=== PATIENT | male | born 1955 | race Caucasian/White ===

== ENCOUNTER → 2023-10-04 07:43 | Outpatient (REF) | payer MEDICARE, OTHER, SELFPAY | LOC: RAD 07:43 | PROVIDERS: ATTENDING PHYSICIAN Physician Assistant; FAMILY PHYSICIAN Family Medicine | DX: I73.9 Peripheral vascular disease, unspecified (principal) | CPT/HCPCS: 93922; 93925 ==

== ENCOUNTER 2023-10-15 06:49 | Day surgery (SDC) | payer MEDICARE, OTHER, SELFPAY ==
[2023-10-15] VITALS (14 sets, daily range): BP systolic 20–174; BP diastolic 64–97; BMI 30.5
[2023-10-15 07:06] LABS: Hematocrit 35.2 % (39.0-52.0); Hemoglobin 11.8 g/dL (13.0-18.0); Mean Corp Hgb Conc. 33.5 g/dL (33.0-37.0); Mean Corpuscular Volume 86.5 fL (80.0-94.0); Mean Platelet Volume 10.5 fL (7.4-10.4); Platelet Count 241 10^3/uL (130-400); Red Blood Cell Count 4.07 10^6/uL (4.70-6.10); Red Cell Dist. Width 14.2 % (11.5-14.5)
[2023-10-15 07:19] LABS: INR 0.96; PT 12.7 Sec (11.4-14.6)
[2023-10-15 07:42] LABS: Glucose - Point of Care 241 mg/dl (70-99)
[2023-10-15] MEDS: NSS 500 IV (07:43)
[2023-10-15 07:53] LABS: Blood Urea Nitrogen 47 mg/dl (9-20); Calcium 9.4 mg/dl (8.4-10.2); Carbon Dioxide 25 mmol/L (22-30); Chloride 100 mmol/L (98-107); Estimated Creatinine Clearance 67 ml/min; Glucose 270 mg/dl (70-99); Potassium 5.2 mmol/L (3.5-5.1); Sodium 133 mmol/L (135-145); eGFR > 60.00
[2023-10-15] MEDS: NOVOLOG vial 1 UNITS SC ×2 (07:55→11:07)
--- NOTE | 2023-10-15 08:41 | W.SUR.PREOP ---
Pre-Operative Surgical Note
-
I have examined this patient prior to the performance of the scheduled procedure.
The patient's condition is unchanged from the time of the current History and
Physical and the patient is able to undergo the scheduled procedure.
--- NOTE | 2023-10-15 09:32 | W.PV.INTER ---
VPI Note
Pre Admission Note
Functional Status: Full
Ambulation: Ambulate Independently
Pre Op Medications
Pre Op ASA: Yes
Pre Op Statin: Yes
Pre Op NATALIIA Inhibitor/ARB: Yes
Pre Op P2y12 Antagonist: Clopidogrel
Pre Op Beta Blockers: Chronic > 30 Days
Pre Op Chronic Anticoagulant: None
Pre Op Cilostazol: No
Post Op Medications
Post Op ASA: Yes
Post Op Statin: Yes
Post Op NATALIIA Inhibitor/ARB: Yes
Post Op P2y12 Antagonist: Clopidogrel
Post Op Beta Blockers: Chronic > 30 Days
Post Op Chronic Anticoagulant: None
Post Op Cilostazol: No
--- NOTE | 2023-10-15 09:34 | W.SUR.POST ---
Surgical Immediate Post Op
Note
Pre Op Diagnosis: PAD
Post Op Diagnosis: PAD
Procedure Performed: RLE angiogram, IVL and END POLISHER of AT
Primary Surgeon: Britni
Anesthesia: local and sedation
Estimated Blood Loss: <2cc
Fluids: see anesthesia flow sheet
Drains/Shunts: none
Specimens/Cultures: none
Doppler/Duplex/Angio (Y/N): Y
Complications: none
Operative Findings: successful IVL/END POLISHER
[2023-10-15 11:06] LABS: Glucose - Point of Care 198 mg/dl (70-99)
[2023-10-15] MEDS: NSS 1000 IV (11:10)
[2023-10-15] MEDS: ROXICODONE 5 MG PO (12:00)
--- NOTE | 2023-10-15 12:21 | OR.RPT ---
Operative Report
Operative Report
Date of Operation: 10/15/2023
Pre Op Diagnosis: Critical limb threatening ischemia, right lower extremity manifested by ischemic rest pain of the hallux and heel and associated toe and heel ulcers
Post Op Diagnosis: Critical limb threatening ischemia, right lower extremity manifested by ischemic rest pain of the hallux and heel and associated toe and heel ulcers
Procedure:
1.) Intravascular lithotripsy of calcified right anterior tibial artery occlusion (2.5 mm x 40 mm shockwave S4 balloon)
2.) Balloon angioplasty of long-segment right anterior tibial artery occlusion (2 mm x 60 mm; 2 mm x 40 mm predilatation)
3.) Diagnostic aortobiiliac arteriogram
4.) Diagnostic right lower extremity arteriogram
5.) Ultrasound-guided percutaneous access to the left common femoral artery
Surgeon: Case Ryder III, MD
Anesthesia: Sedation with local
Fluoroscopy:
65.9 min
265 mGy
44.82 Gy.cm2
Complications: None
Estimated Blood Loss: Less than 10 cc
History and Indications for Procedure: 68-year-old male with severe peripheral arterial occlusive disease and critical limb threatening ischemia manifested by ischemic rest pain and nonhealing ulcers.
Procedure in Detail: Jose Miguel Babb was correctly identified and placed supine on the operating table. After adequate induction of anesthesia the bilateral groins were prepped and draped in the usual sterile fashion. A timeout was performed with the
nursing and anesthesia staff confirming the patient's identity as well as the nature and laterality of the procedure.
The left common femoral artery was identified under ultrasound guidance. The artery was patent. The superior and inferior aspects of the femoral head were identified with radiographic guidance and marked at the skin level. The proposed puncture site
was infiltrated with local anesthesia. We saved a copy of the ultrasound image to the medical record. Under ultrasound guidance we accessed the left common femoral artery with a micropuncture needle and upsized to a 5 Fr sheath over a Bentson wire.
The wire and a ShepherSputnik8 hook flush catheter were advanced into the distal abdominal aorta and a diagnostic aorto-biiliac arteriogram was performed:
AORTO-ILIAC ARTERIOGRAM:
Aorta: Patent with no stenosis identified
Right common iliac artery: Patent with no stenosis identified
Right external iliac artery: Patent with no stenosis identified
Left common iliac artery: Patent with no stenosis identified
Left external iliac artery: Patent with no stenosis identified
Under roadmap guidance using a Glidewire and the CannMedica PharmaerSputnik8 hook catheter we selected the right common iliac artery and then the external iliac artery. A catheter was tracked up and over the aortic bifurcation and placed in the distal external iliac
artery. A diagnostic right lower extremity arteriogram was then performed which demonstrated the following:
RIGHT LOWER EXTREMITY:
Common femoral artery: Patent with no stenosis identified
Profunda femoral artery: Patent with no stenosis identified
Superficial femoral artery: Patent with no stenosis identified
Popliteal artery: Patent with no stenosis identified
Anterior tibial artery: Patent proximally but occludes shortly thereafter. Reconstitutes at the ankle via peroneal artery collaterals. Diffuse calcification identified.
Tibioperoneal trunk: Patent with no stenosis identified
Peroneal artery: Patent as the lone tibial artery runoff. No stenosis was identified. Branches at the ankle reconstitute the anterior tibial artery. Posterior branches supplied the heel.
Posterior tibial artery: Occluded with no distal reconstitution.
Severe diffuse small vessel disease is identified in the foot
ENDOVASCULAR INTERVENTION:
Systemic heparin was administered. The superficial femoral artery was selected with the Glidewire and Quickcross catheter. Exchanged out for a 5 Fr 70 cm sheath over a Storq wire. Selected the popliteal artery under roadmap guidance with
Quickcross catheter and glidewire. Selected the anterior tibial artery with a CXI catheter and Glidewire. The catheter and wire were advanced to the point of AT occlusion. Exchanged out for the 0.014 RACING BOARD MARKER wire and 0.014 Quickcross catheter. The
AT occlusion was crossed with the RACING BOARD MARKER wire and Quickcross catheter. The wire was advanced into the distal reconstituted anterior tibial artery at the ankle. A 2 mm x 60 mm angioplasty balloon as well as a 2 mm x 40 mm angioplasty balloon were used
to predilate the length of anterior tibial artery occlusion. Was placed across the stenosis under roadmap guidance. Subsequent arteriogram demonstrated an improved but suboptimal result. Due to the heavily calcified nature of the arterial disease
and in an effort to modify the calcium to achieve maximum luminal gain with endovascular intervention I elected to proceed with intravascular lithotripsy. A 2.5 mm x 40 mm S4 Shockwave balloon was advanced across the calcified anterior tibial artery
stenosis under roadmap guidance. Alternating rounds of lithotripsy pulse delivery at sub-nominal pressure and angioplasty at nominal pressure was performed across the entire length of calcified anterior tibial artery stenosis. In between rounds of
pulse delivery and angioplasty the balloon was deflated and repositioned under roadmap guidance. All 160 pulses were delivered.
COMPLETION ARTERIOGRAM: Excellent technical result. Brisk flow through the anterior tibial artery which was now patent and matched the flow of the peroneal artery to the ankle. Early filling of venous branches was identified at the ankle. No
filling defects or extravasation was seen. No areas of significant residual stenosis were identified. Once again identified was significant small vessel disease in the foot but improved flow was identified to the foot and heel compared to
pretreatment.
Satisfied with this result we then concluded the procedure. The sheath tip was pulled back into the left external iliac artery. Protamine was administered. The sheath was secured in place with the plan to pull it in the recovery room.
The patient tolerated the procedure well and was taken to the recovery area in stable condition. Easily audible Doppler signals were marked at the right DP and PT.
Attestation: I was present and responsible for the entire procedure.
Signed:
Case Ryder III, MD
[facility] Vascular Surgery
[phone] (cell)
== END 2023-10-15 16:30 | disposition home or self-care (01) ==
LOC: CATH 06:49
PROVIDERS: ATTENDING PHYSICIAN Surgery Vascular Surgery; FAMILY PHYSICIAN Family Medicine; OTHER PHYSICIAN Internal Medicine Cardiovascular Disease
DX: I70.234 Atherosclerosis of native arteries of right leg with ulceration of heel and midfoot (principal); L97.419 Non-pressure chronic ulcer of right heel and midfoot with unspecified severity; I70.235 Atherosclerosis of native arteries of right leg with ulceration of other part of foot; L97.519 Non-pressure chronic ulcer of other part of right foot with unspecified severity; I12.9 Hypertensive chronic kidney disease with stage 1 through stage 4 chronic kidney disease, or unspecified chronic kidney disease; Z79.82 Long term (current) use of aspirin; Z79.85 Long-term (current) use of injectable non-insulin antidiabetic drugs; Z79.02 Long term (current) use of antithrombotics/antiplatelets; I25.10 Atherosclerotic heart disease of native coronary artery without angina pectoris; I25.2 Old myocardial infarction; Z86.718 Personal history of other venous thrombosis and embolism; E11.319 Type 2 diabetes mellitus with unspecified diabetic retinopathy without macular edema; E11.22 Type 2 diabetes mellitus with diabetic chronic kidney disease; N18.31 Chronic kidney disease, stage 3a
CPT/HCPCS: C9772; C1725; 75625; 75716; 76937; 80048; 82962; 85027; 85610; 85730; 86850; 86900; 86901; C1769; C1887; Q9967

== ENCOUNTER 2023-10-24 12:02 | Emergency (ER) | payer MEDICARE, OTHER, SELFPAY ==
[2023-10-24 12:10] VITALS: BP 108/58
--- NOTE | 2023-10-24 12:29 | ED.GENMED ---
History of Present Illness
General
Chief Complaint: Fall
Source: patient and spouse
Time Seen by Provider: 10/24/23 12:16
Travel History
Have you had any contact with someone who has COVID-19?: No
Do you have any symptoms of coronavirus? Fever > 100 degrees, chills, cough, shortness of breath, sore throat, loss of taste or smell, muscle aches, or headache?: No
History of Present Illness
History of Present Illness:
68-year-old male with past medical history of CVA, CAD, hypertension, hyperlipidemia, previous CT presenting to the emergency department for evaluation after Wednesday afternoon excellently fell down approximately 6 steps injuring his right chest wall,
over the last 2 days has had increased pain with movement as well as deep inspiration with pain worsening today prompting him to come to the ER for further evaluation. Patient has been attempting to manage his pain with Tylenol with minimal
success. He denies any head injury, loss consciousness, vomiting, visual changes, any extremity related injuries or any other concerns. Denies any history of previous rib injury.
Past History
Past History
ED Past Medical History: CAD, CVA, HTN, Hypercholesterolemia, NIDDM and CT
ED Past Surgical History: Cardiac and Orthopedic
Social History
Tobacco: Non-smoker
Alcohol: None
Drug: None
Personal:
Living: with family
Employment: Employed
Family History
Family History: CAD
Review of Systems
Review of Systems
All Other Systems: ROS reviewed and negative except as documented in HPI and ROS
Phy Exam
Physical Exam
Physical Exam:
GENERAL: Alert , in no apparent distress
EYE: conjunctiva clear
NECK: Supple
ENT: o/p clr, mmm.
CARDIAC: Regular rate and rhythm
LUNGS: Clear breath sounds bilaterally, no acute respiratory distress, no wheezes/rales/rhonchi
Chest wall: Tenderness along the posterolateral ribs just inferior to the mid axillary line on the right around the level of the sixth rib. There is no overlying ecchymosis or flail chest
Abdomen: Soft, nontender, nondistended
NEUROLOGICAL: Alert and oriented
SKIN: Warm and dry, skin intact.
MUSCULOSKELETAL: well perfused.
PSYCH: Normal and appropriate interaction.
Scores
Heart Failure Risk
Heart Failure Risk Score: Not Applicable
Heart Score for Chest Pain Patients
STEMI patient?: Not applicable
Withdrawal Assessment of Alcohol
Withdrawal Assessment Completed?: Not applicable
Course
Orders/Labs/Results
Orders:
Orders
10/24/23 12:25
Lidocaine [Lidocaine 4% Patch] 1 patch TOPICAL NOW STA
Oxycodone/Acetaminophen [Percocet 5/325] 1 tablet PO NOW STA
CR Ribs-right 3 Vw W/pa Chest* Urgent
Comment:
Reason For Exam: fall, right posterolateral rib pain around rib 5-6
10/24/23 13:31
HYDROmorphone [Dilaudid] 0.5 mg IM NOW STA
Vital Signs
Initial and Last Documented VS:
Initial Vital Signs
Temp Pulse Resp BP Pulse Ox
98.2 F 77 16 108/58 98
10/24/23 12:10 10/24/23 12:10 10/24/23 12:10 10/24/23 12:10 10/24/23 12:10
Last Documented Vital Signs
Temp Pulse Resp BP Pulse Ox
98.2 F 77 16 108/58 98
10/24/23 12:10 10/24/23 12:10 10/24/23 12:10 10/24/23 12:10 10/24/23 12:10
MDM/Problems Addressed
Differential Diagnosis Includes:
Rib fracture, rib contusion, cartilaginous injury, visceral injury or pneumothorax
MDM/Problems Addressed:
68-year-old male present emergency department for evaluation following an accidental fall 2 days ago resulting in right-sided rib pain. Pain is clearly reproducible with palpation as well as with movement within the right posterolateral axillary
region around the sixth rib. X-ray of the right ribs ordered. Pain control with Percocet and topical Lidoderm patch. Reassessment following.
*Radiology
Radiology exam reviewed: preliminary read by ED provider (Patient's x-ray without any fracture or pneumothorax/hemothorax identified)
*Pulse Oximetry
Patient hypoxic: no
*Critical Care Note
Total Time (30-74mins, 75-104mins- exclusive of procedures): Not Applicable
Patient Management
Escalation/DeEscalation of care consider admission/obs:
X-ray does not show any acute abnormalities. I did discuss with patient that there could be a very subtle nondisplaced fracture which could be causing him pain versus cartilaginous injury. Patient still noting pain despite initial Percocet. Will
treat with an additional half milligram of Dilaudid prior to his discharge. Prescription for Percocet and Lidoderm patch sent to pharmacy. Patient will follow-up with primary care physician. Aware of return precautions.
ED Attending Note
-
Portions of this chart may have been created with voice recognition software.� Occasional wrong word or��sound alike� substitutions may have occurred due to the inherent limitations of voice recognition software.
Discharge Plan
Departure
Patient Disposition: Home (Routine Discharge)
Date of Disposition: 10/24/23
Time of Disposition: 13:29
Patient with high blood pressure during this ER visit?: No
Discharge Problem:
Rib pain on right side
Instructions: Rib Fracture or Bruised Rib ED
Prescriptions:
New
oxycodone-acetaminophen [Percocet] 5-325 mg Tablet
1 tab PO Q6HPRN PRN (Reason: pain) Qty: 8 0RF
lidocaine [Lidoderm] 5 % adhesive patch,medicated
1 patch topical DAILY Qty: 30 0RF
No Action
carvedilol 12.5 mg tablet
12.5 mg PO BID
clopidogrel 75 mg tablet
75 mg PO DAILY
Hold Instructions: Resume on 05/09/23.
metformin 1,000 mg tablet
1,000 mg PO BID@0800,1800
Hold Instructions: Resume on 10/18/23.
glimepiride 4 mg tablet
4 mg PO BID@0800,1700
hydrochlorothiazide 25 mg tablet
25 mg PO DAILY
lisinopril 40 mg tablet
40 mg PO QPM
dapagliflozin propanediol [Farxiga] 10 mg tablet
10 mg PO DAILY
Trulicity 3 mg/0.5 mL pen injector
3 mg SC SA
Patient Comments:
pAtient states hes being started on something different.
atorvastatin 80 MG tablet
80 mg PO DAILY
aspirin 81 MG tablet,chewable
81 mg PO DAILY
famotidine 20 mg Tablet
20 mg PO HS
Referrals:
Nick Benedict MD [Family Provider] -
Interventions
Interventions:
*Risk Screen - Suicide Last Done: 10/24/23 12:18
*Neglect/Abuse Screening Last Done: 10/24/23 12:18
*ED COVID-19 Vaccine History Last Done: 10/24/23 12:10
ED-Musculoskeletal Assessment Last Done: 10/24/23 12:18
ED- Neurological Assessment Last Done: 10/24/23 12:18
ED-Skin Assessment Last Done: 10/24/23 12:18
[2023-10-24] MEDS: PERCOCET 5/325 1 TABLET PO (12:32)
[2023-10-24] MEDS: LIDOCAINE 4% PATCH 1 PATCH TOPICAL (12:59)
[2023-10-24] MEDS: DILAUDID 0.5 MG IM (13:40)
== END 2023-10-24 14:01 | disposition home or self-care (01) ==
LOC: EMR 12:02
PROVIDERS: EMERGENCY PHYSICIAN Student in an Organized Health Care Education/Training Program; FAMILY PHYSICIAN Family Medicine
DX: R07.81 Pleurodynia (principal); W10.9XXA Fall (on) (from) unspecified stairs and steps, initial encounter; Z86.73 Personal history of transient ischemic attack (TIA), and cerebral infarction without residual deficits; I25.10 Atherosclerotic heart disease of native coronary artery without angina pectoris; E78.00 Pure hypercholesterolemia, unspecified; I10 Essential (primary) hypertension
CPT/HCPCS: 99284; 96372; 71101

== ENCOUNTER → 2023-11-24 14:59 | Outpatient (REF) | payer MEDICARE, OTHER, SELFPAY | LOC: RAD 14:59 | PROVIDERS: ATTENDING PHYSICIAN Physician Assistant; FAMILY PHYSICIAN Surgery Vascular Surgery | DX: I73.9 Peripheral vascular disease, unspecified (principal) | CPT/HCPCS: 93922; 93925 ==

== ENCOUNTER 2023-12-02 06:23 | Day surgery (SDC) | payer MEDICARE, OTHER, SELFPAY ==
[2023-12-01 06:39] VITALS: BMI 30.9
[2023-12-02 13:07] LABS: Glucose - Point of Care 101 mg/dl (70-99)
[2023-12-02 13:17] VITALS: BP 141/91; BMI 30.9
[2023-12-02] MEDS: NORMOSOL-R 1000 IV (13:23)
[2023-12-02 15:17] VITALS: BP 115/79
[2023-12-02 15:25] LABS: Glucose - Point of Care 73 mg/dl (70-99)
[2023-12-02 15:30] VITALS: BP 140/54
[2023-12-02 15:45] VITALS: BP 118/93
[2023-12-02 16:00] VITALS: BP 169/86
== END 2023-12-02 16:30 | disposition home or self-care (01) ==
LOC: SDS 06:23
PROVIDERS: ATTENDING PHYSICIAN Podiatrist Foot & Ankle Surgery
DX: M86.171 Other acute osteomyelitis, right ankle and foot (principal); L02.611 Cutaneous abscess of right foot; M86.9 Osteomyelitis, unspecified
CPT/HCPCS: 28825; 88304; 88305; 88311; 82962

== ENCOUNTER 2024-01-11 08:22 | Day surgery (SDC) | payer MEDICARE, OTHER, SELFPAY ==
[2024-01-11] VITALS (14 sets, daily range): BP systolic 117–201; BP diastolic 72–91; BMI 30.3
[2024-01-11 09:13] LABS: Hematocrit 35.3 % (39.0-52.0); Hemoglobin 11.9 g/dL (13.0-18.0); Mean Corp Hgb Conc. 33.7 g/dL (33.0-37.0); Mean Corpuscular Hgb 28.8 pg (27.0-31.0); Mean Corpuscular Volume 85.5 fL (80.0-94.0); Mean Platelet Volume 10.5 fL (7.4-10.4); Platelet Count 253 10^3/uL (130-400); Red Blood Cell Count 4.13 10^6/uL (4.70-6.10); Red Cell Dist. Width 13.5 % (11.5-14.5); White Blood Cell Count 6.6 10^3/uL (4.8-10.8)
[2024-01-11 09:20] LABS: APTT 26.4 Sec (23.4-35.0); INR 1.01; PT 13.1 Sec (11.4-14.6)
[2024-01-11] MEDS: NSS 287 ML IV (09:21)
[2024-01-11 09:32] LABS: Blood Urea Nitrogen 20 mg/dl (9-20); Calcium 9.5 mg/dl (8.4-10.2); Carbon Dioxide 26 mmol/L (22-30); Chloride 103 mmol/L (98-107); Estimated Creatinine Clearance 84 ml/min; Glucose 219 mg/dl (70-99); Potassium 4.7 mmol/L (3.5-5.1); Sodium 136 mmol/L (135-145); eGFR > 60.00
[2024-01-11 09:41] LABS: Glucose - Point of Care 214 mg/dl (70-99)
[2024-01-11] MEDS: NOVOLOG vial 2 UNITS SC (11:03)
[2024-01-11 12:44] LABS: Glucose - Point of Care 169 mg/dl (70-99)
[2024-01-11 13:53] LABS: Glucose - Point of Care 165 mg/dl (70-99)
--- NOTE | 2024-01-11 14:19 | OR.RPT ---
Operative Report
Operative Report
Date of Operation: 01/11/2024
Pre Op Diagnosis: Critical limb threatening ischemia, right lower extremity with nonhealing foot wounds
Post Op Diagnosis: Critical limb threatening ischemia, right lower extremity with nonhealing foot wounds
Procedure:
1.) Selective catheterization of third order lower extremity artery (failed attempt at endovascular intervention on occluded anterior tibial artery from both antegrade/retrograde approaches )
2.) Diagnostic aortobiiliac arteriogram
3.) Diagnostic right lower extremity arteriogram
4.) Ultrasound-guided percutaneous retrograde access to the right distal anterior tibial artery
5.) Ultrasound-guided percutaneous access to the left common femoral artery
Surgeon: Case Ryder III, MD
Drill Press Operator For Metal: Chase Callaway MD PhD, PGY1
Anesthesia: Sedation with local
Fluoroscopy:
44 min
183 mGy
58.25 Gy.cm2
Complications: None
Estimated Blood Loss: Less than 20 cc
History and Indications for Procedure: 68-year-old male with poorly controlled diabetes and critical limb threatening ischemia of his right lower extremity manifested by nonhealing right foot wounds at a toe amputation site and the plantar surface
of his heel.
Procedure in Detail: Jose Miguel Babb was correctly identified and placed supine on the operating table. After adequate induction of anesthesia the bilateral groins were prepped and draped in the usual sterile fashion. A timeout was performed with the
nursing and anesthesia staff confirming the patient's identity as well as the nature and laterality of the procedure.
The left common femoral artery was identified under ultrasound guidance. The artery was patent. The superior and inferior aspects of the femoral head were identified with radiographic guidance and marked at the skin level. The proposed puncture site
was infiltrated with local anesthesia. We saved a copy of the ultrasound image to the medical record. Under ultrasound guidance we accessed the left common femoral artery with a micropuncture needle and upsized to a 5 Fr sheath over a Bentson wire.
The wire and a ShepherGenomatica hook flush catheter were advanced into the distal abdominal aorta and a diagnostic aorto-biiliac arteriogram was performed:
AORTO-ILIAC ARTERIOGRAM:
Aorta: Patent with no significant stenosis identified
Right common iliac artery: Patent with no significant stenosis identified
Right external iliac artery: Patent with no significant stenosis identified
Left common iliac artery: Patent with no significant stenosis identified
Left external iliac artery: Patent with no significant stenosis identified
Under roadmap guidance using a Glidewire and the pocketvillageerGenomatica hook catheter we selected the right common iliac artery and then the external iliac artery. A catheter was tracked up and over the aortic bifurcation and placed in the distal external iliac
artery. A diagnostic right lower extremity arteriogram was then performed which demonstrated the following:
RIGHT LOWER EXTREMITY:
Common femoral artery: Patent with no significant stenosis identified
Profunda femoral artery: Patent with no significant stenosis identified
Superficial femoral artery: Patent with no significant stenosis identified
Popliteal artery: Patent with no significant stenosis identified
Anterior tibial artery: Calcified. Patent proximally but occluded in the midportion. Segmental reconstitution of a calcified and stenotic segment near the ankle but this segment occludes once again distally and terminates into a nest of collateral
branches. Dorsalis pedis artery is occluded
Tibioperoneal trunk: Patent with no significant stenosis identified
Peroneal artery: Patent as the lone tibial artery runoff. No stenosis identified
Posterior tibial artery: Occluded with no distal reconstitution identified
ENDOVASCULAR INTERVENTION: Systemic heparin was administered. Selected the superficial femoral artery with the Glidewire and Quickcross. Exchanged out for a 5 Fr 90 cm sheath over a Storq wire. The radiopaque tip of the sheath was positioned in
the popliteal artery. Selected the anterior tibial artery under roadmap guidance with Quickcross catheter and glidewire. Attempted to cross the anterior tibial artery occlusion using a 0.014 ELECTRONIC TESTER wire and 0.014 Quickcross catheter but was
unsuccessful. I then made an attempt to cross with retrograde pedal access. The right foot was prepped and draped in the usual sterile fashion. Under ultrasound guidance I identified the calcified distal anterior tibial artery at the ankle.
Under ultrasound guidance I was able to access the distal anterior tibial artery with the micropuncture needle. I was able to achieve enough wire purchase to place the micro dilator and sheath. I attempted to cross the anterior tibial artery
occlusion retrograde using a 0.014 ELECTRONIC TESTER wire but again was unsuccessful.
At this point additional endovascular intervention attempts were abandoned. The sheath and wire were removed from the retrograde pedal access site. Direct manual pressure was held over the puncture site and hemostasis was achieved. The 5 [place]
sheath was pulled back into the left external iliac artery. Protamine was administered. The sheath was pulled and direct manual pressure was held over the puncture site. Hemostasis was achieved.
The patient tolerated the procedure well and was taken to the recovery area in stable condition.
Attestation: I was present and responsible for the entire procedure.
Signed:
Case Ryder III, MD
[facility] Vascular Surgery
[phone] (cell)
--- NOTE | 2024-01-11 14:39 | W.IMMPOSTOP ---
Surgical Immed Post Op Note
-
Primary Surgeon: Dr. Case Ryder III, MD
Assisting Surgeon: Dr. Chase Callaway MD, PhD (PGY-1)
Pre-op Diagnosis: Critical limb threatening ischemia right lower extremity
Post-op Diagnosis: Critical limb threatening ischemia right lower extremity
Procedure Performed: Diagnostic arteriogram
Anesthesia Type: MAC
Specimen / Cultures: None
Estimated Blood Loss: Minimal
Complications: None
Operative Findings: The patient was brought to the OR and placed in the supine position. Groins were prepped and the patient was draped in usual sterile fashion. Ultrasound guidance was used to identify the left common femoral artery and the C arm
confirmed its position above the femoral head. Local anesthesia was given along the intended vascular access tract. Micropuncture needle was used to gain access to the left common femoral artery. This was upsized to a 5-[place] islander sheath, which was
advanced over a [place] wire. The wire and a petty's hook catheter were advanced into the distal abdominal aorta. Diagnostic arteriogram was performed to image the distal abdominal aorta and bilateral iliac systems. The glidewire and shepher's
hook catheter were then used to gain access to the contralateral ilio-femoral system. Diagnostic arteriogram of the contralateral side showed a calcified and occluded anterior tibial artery. Attempts were made to cross the obstructive lesion in the
R anterior tibial artery but these were unsuccessful. Ultrasound guidance was then used to access the lesion retrograde from the right dorsalis pedis artery. Micropuncture needle was used to gain access and this was upsized to a 5-[place] islander sheath.
Attempts to pass a wire across the lesion retrograde were also unsuccessful and the decision was made to forego additional intervention attempts. The sheath in the left foot was removed and the sheath in the L DIRECTOR OF SPEECH PATHOLOGY was removed. Manual occlusive
pressure was held for 25 minutes. Doppler signal was identified at bilateral DP and PT sites. The patient was transferred to PACU in stable condition.
--- NOTE | 2024-01-11 15:36 | W.PV.INTER ---
VPI Note
Pre Admission Note
Functional Status: Assisted Care
Ambulation: Ambulate with Assistance
Pre Op Medications
Pre Op ASA: Yes
Pre Op Statin: Yes
Pre Op NATALIIA Inhibitor/ARB: Yes
Pre Op P2y12 Antagonist: Clopidogrel
Pre Op Beta Blockers: Chronic > 30 Days
Pre Op Chronic Anticoagulant: None
Pre Op Cilostazol: No
Post Op Medications
Post Op ASA: Yes
Post Op Statin: Yes
Post Op NATALIIA Inhibitor/ARB: Yes
Post Op P2y12 Antagonist: Clopidogrel
Post Op Beta Blockers: Chronic > 30 Days
Post Op Chronic Anticoagulant: None
Post Op Cilostazol: No
[2024-01-11] MEDS: COREG 12.5 MG PO (16:54)
[2024-01-11] MEDS: ZESTRIL 40 MG PO (16:55)
== END 2024-01-11 19:35 | disposition home or self-care (01) ==
LOC: CATH 08:22
PROVIDERS: ATTENDING PHYSICIAN Surgery Vascular Surgery; FAMILY PHYSICIAN Family Medicine
DX: E11.51 Type 2 diabetes mellitus with diabetic peripheral angiopathy without gangrene (principal); E11.9 Type 2 diabetes mellitus without complications; L97.419 Non-pressure chronic ulcer of right heel and midfoot with unspecified severity; I70.234 Atherosclerosis of native arteries of right leg with ulceration of heel and midfoot; I10 Essential (primary) hypertension; I25.10 Atherosclerotic heart disease of native coronary artery without angina pectoris; I25.2 Old myocardial infarction; Z86.718 Personal history of other venous thrombosis and embolism; Z79.82 Long term (current) use of aspirin; Z79.02 Long term (current) use of antithrombotics/antiplatelets; Z79.84 Long term (current) use of oral hypoglycemic drugs
CPT/HCPCS: 36247; 75625; 75716; 76937; 80048; 82962; 85027; 85610; 85730; C1769; C1894; Q9967

== ENCOUNTER → 2024-02-15 14:34 | Outpatient (REF) | payer MEDICARE, OTHER, SELFPAY | LOC: RAD 14:34 | PROVIDERS: ATTENDING PHYSICIAN Surgery Vascular Surgery | DX: I70.221 Atherosclerosis of native arteries of extremities with rest pain, right leg (principal); Z01.818 Encounter for other preprocedural examination; R22.41 Localized swelling, mass and lump, right lower limb | CPT/HCPCS: 93971 ==

== ENCOUNTER 2024-02-28 18:18 | Inpatient (IN) | payer MEDICARE, OTHER, SELFPAY ==
[2024-02-28] VITALS (7 sets, daily range): BP systolic 117–181; BP diastolic 71–95; BMI 29.7
--- NOTE | 2024-02-28 12:59 | ED.GENMED ---
History of Present Illness
General
Chief Complaint: DVT/Possible Blood Clot
Time Seen by Provider: 02/28/24 12:39
History of Present Illness
History of Present Illness:
68yoM with a history of type 2 diabetes, peripheral vascular disease, coronary artery disease, hypertension, and DVT presenting for evaluation of right foot pain. Pain has been ongoing for the past 1-2 months. He was started on amoxicillin x 10 days
by his radio mechanic helper which he finished about 2 weeks ago. He went to see his radio mechanic helper today due to worsening right foot pain and was sent to the ED for concern for a DVT. Pain intermittently radiates to the R thigh and calf but the pain is mostly
localized to the right foot. He also has new erythema and a prescription for Augmentin was sent to the pharmacy by his radio mechanic helper today. He denies any fevers or chills. No chest pain or shortness of breath. He is currently on aspirin and Plavix.
Past History
Past History
ED Past Medical History: CAD, CVA, HTN, Hypercholesterolemia, NIDDM and DC
ED Past Surgical History: Cardiac and Orthopedic
Social History
Tobacco: Non-smoker
Alcohol: None
Drug: None
Personal:
Living: with family
Employment: Employed
Family History
Family History: CAD
Review of Systems
Review of Systems
Constitutional: Denies fever or chills
Phy Exam
Physical Exam
Physical Exam:
Right foot: Erythema and warmth to the distal aspect of the foot with skin breakdown in between toes. No drainage, crepitus, fluctuance. ROM intact. Strong DP doppler signal present. Foot is warm with cap refill of 2 seconds. No skin changes or
edema to the R calf or thigh. Compartments soft.
Course
Orders/Labs/Results
Orders:
Orders
02/28/24 11:47
US Periph Venous LOWER Ext RT Urgent
Comment:
Reason For Exam: R/O DVT
02/28/24 12:57
Oxycodone/Acetaminophen [Percocet 5/325] 1 tablet PO NOW STA
Foot, Right 3 View [CR Foot - Right Min 3 Views] Urgent
Comment:
Reason For Exam: R foot pain, erythema
02/28/24 13:38
Complete Blood Count/With Diff Urgent
Comprehensive Metabolic Panel Urgent
02/28/24 14:35
0.9% Sodium Chloride 500 ml [Nss] 500 ml IV BOLUS
Cefepime HCl [Maxipime] 2,000 mg IV NOW STA
02/28/24 15:03
CRP [C-Reactive Protein] Urgent
ESR [Erythrocyte Sed Rate] Urgent
Lactic Acid Q4H
Comment: CANCEL 2nd LACTIC ACID IF 1st LACTIC ACID IS LESS THAN 2
Blood Culture Q30M
MALA Source: Blood/Venous
Specimen Description:
Blood Culture Q30M
MALA Source: Blood/Venous
Specimen Description:
02/28/24 15:19
Sterile Water [Sterile Water For Injection] 20 ml .ROUTE .STK-MED
02/28/24 17:49
Admit/Transfer Patient As Directed
Co-Sign Provider:
Level of Care: Inpatient admission
Assign to:: Medical/Surgical
Physician / Group: Dany
Diagnosis: Chronic foot ischemia
Reason for Hospitalization: Above
Expected length of stay greater than two midnights?: Yes
ELOS- Estimated Length of Stay in days: 2
I certify the patient meets the requirements for IP care: Yes
02/28/24 17:52
Code Status As Directed
Resuscitation Status: Full Code
02/28/24 17:[address] See Dose Instructions PO NOW STA
Discontinue all Active Warfarin orders?: Yes
02/28/24 18:45
Lactic Acid Q4H
Comment: CANCEL 2nd LACTIC ACID IF 1st LACTIC ACID IS LESS THAN 2
02/28/24 22:00
Acetaminophen [Tylenol] 1,000 mg PO TID
Abnormal Lab Results
02/28/24 02/28/24
13:38 15:03
RBC 3.56 L 10^6/uL
(4.70-6.10)
Hgb 10.0 L g/dL
(13.0-18.0)
Hct 29.7 L %
(39.0-52.0)
Absolute Neuts (auto) 8.4 H 10^3/uL
(1.4-6.5)
Absolute Lymphs (auto) 0.4 L 10^3/uL
(1.2-3.4)
Absolute Monos (auto) 0.9 H 10^3/uL
(0.1-0.6)
Neutrophils % 84.9 H %
(42.2-75.2)
Lymphocytes % 4.3 L %
(20.5-51.1)
ESR 93 H mm/hour
(0-20)
BUN 33 H mg/dl
(9-20)
Glucose 141 H mg/dl
(70-99)
Alkaline Phosphatase 133 H U/L
(38-126)
C-Reactive Protein 162.10 H mg/L
(0.0-10.00)
02/28/24 13:38
02/28/24 13:38
Vital Signs
Initial and Last Documented VS:
Initial Vital Signs
Temp Pulse Resp BP Pulse Ox
97.9 F 105 23 117/71 95
02/28/24 11:42 02/28/24 11:42 02/28/24 11:42 02/28/24 11:42 02/28/24 11:42
Last Documented Vital Signs
Temp Pulse Resp BP Pulse Ox
97.9 F 91 23 181/95 95
02/28/24 11:42 02/28/24 18:36 02/28/24 11:42 02/28/24 18:36 02/28/24 11:42
MDM/Problems Addressed
Differential Diagnosis Includes:
68yoM with a history of T2DM and PAD here with atraumatic R foot pain. Ongoing x 1-2 months. Recently on abx without improvement. Sent in by his radio mechanic helper for concern for a DVT. Patient is afebrile and hemodynamically stable. He is well-appearing
in no acute distress. There is erythema noted to the distal aspect of the foot with skin breakdown in between the toes. No crepitus or fluctuance. DP pulse present with Doppler. Differential diagnosis includes but is not limited to: Cellulitis,
osteomyelitis, less likely DVT
Initial ED plan: Check CBC, CMP, right foot x-rays, and venous duplex.
*Critical Care Note
Total Time (30-74mins, 75-104mins- exclusive of procedures): Not Applicable
Update Note
Update Note:
X-rays show evidence of osteomyelitis at the left second digit and second metatarsal. White count normal. Venous duplex negative for DVT. ESR/CRP, blood cultures, and IV cefepime added. He was admitted for further management.
ED Attending Note
-
Portions of this chart may have been created with voice recognition software.� Occasional wrong word or��sound alike� substitutions may have occurred due to the inherent limitations of voice recognition software.
Discharge Plan
Departure
Patient Disposition: Admit
Date of Disposition: 02/28/24
Time of Disposition: 15:24
Admit to: Med/Surg
Presentation/result/management discussed w/ accepting MD/DO: Hospitalist
Discharge Problem:
Acute osteomyelitis of right foot
Interventions
Interventions:
*Risk Screen - Suicide Last Done: 02/28/24 12:15
*General Assessment Last Done: 02/28/24 11:42
*Neglect/Abuse Screening Last Done: 02/28/24 12:15
*ED COVID-19 Vaccine History Last Done: 02/28/24 11:42
ED- Cardiac Assessment Last Done: 02/28/24 12:15
ED- Pulmonary Assessment Last Done: 02/28/24 12:15
ED-Peripheral Vascular Assessment Last Done: 02/28/24 12:15
ED-Skin Assessment Last Done: 02/28/24 12:15
[2024-02-28] MEDS: PERCOCET 5/325 1 TABLET PO (13:57)
[2024-02-28 14:02] LABS: % Basophils 0.3 % (0-2); % Immature Granulocytes 0.4 % (0-0.5); % Lymphocytes 4.3 % (20.5-51.1); % Monocytes 9.1 % (1.7-9.3); % Neutrophils 84.9 % (42.2-75.2); Absolute Eosinophils 0.1 10^3/uL (0-0.7); Absolute Lymphocytes 0.4 10^3/uL (1.2-3.4); Absolute Monocytes 0.9 10^3/uL (0.1-0.6); Absolute Neutrophils 8.4 10^3/uL (1.4-6.5); Hematocrit 29.7 % (39.0-52.0); Mean Corp Hgb Conc. 33.7 g/dL (33.0-37.0); Mean Corpuscular Hgb 28.1 pg (27.0-31.0); Mean Corpuscular Volume 83.4 fL (80.0-94.0); Mean Platelet Volume 10.2 fL (7.4-10.4); Nucleated Red Blood Cells % 0 % (-); Platelet Count 306 10^3/uL (130-400); Red Blood Cell Count 3.56 10^6/uL (4.70-6.10); Red Cell Dist. Width 13.4 % (11.5-14.5); White Blood Cell Count 9.8 10^3/uL (4.8-10.8)
[2024-02-28 14:14] LABS: ALT (SGPT) 18 U/L (0-50); AST (SGOT) 19 U/L (17-59); Albumin 3.8 g/dl (3.5-5.0); Alkaline Phosphatase 133 U/L (38-126); Blood Urea Nitrogen 33 mg/dl (9-20); Calcium 9.6 mg/dl (8.4-10.2); Carbon Dioxide 24 mmol/L (22-30); Chloride 101 mmol/L (98-107); Estimated Creatinine Clearance 64 ml/min; Glucose 141 mg/dl (70-99); Sodium 137 mmol/L (135-145); Total Bilirubin 0.5 mg/dl (0.2-1.3); Total Protein 6.7 g/dl (6.3-8.2); eGFR > 60.00
[2024-02-28] MEDS: NSS 500 IV (15:21)
[2024-02-28] MEDS: MAXIPIME 2000 MG IV (15:21)
[2024-02-28 15:44] LABS: Erythrocyte Sed Rate 93 mm/hour (0-20)
--- NOTE | 2024-02-28 18:07 | HPS.HSE ---
Family Physician
-
Family Physician: Nick Benedict
Chief Complaint
-
Right foot pain
History of Present Illness
Patient is a 68-year-old male with history of PAD, diabetes, prior left fourth toe amputation due to osteomyelitis, right second toe distal phalanx amputation who presents with worsening of right foot pain for the last few days. Patient is not able
to bear weight. He reports recent antibiotics prescribed by podiatry and complete course of therapy close 2-week prior to presentation. He denies any fever and chills.
Medical History
Past Medical History
Past Medical History: Reports CAD (PAD), Hypercholesterolemia and NIDDM
Past Surgical History: Reports Other (Vascular/podiatry)
Social History
Tobacco: Non-smoker
Alcohol: None
Drug: None
Personal:
Living: With Family
Family History
Family History: Not pertinent
Allergies / Home Medications
Allergies reflects when Allergies were last updated in [facility].
Home Medications with original date entered in [facility]
Allergy/Medication List:
Allergies
Allergy/AdvReac Type Severity Reaction Status Date / Time
No Known Allergies Allergy Verified 01/11/24 08:43
Home Medications
atorvastatin 80 mg tablet 80 mg PO QPM High Cholesterol 03/18/23
carvedilol 12.5 mg tablet 12.5 mg PO BID Blood Pressure 03/18/23
clopidogrel 75 mg tablet 75 mg PO DAILY Blood Clot Prevention/Tx 03/18/23
dapagliflozin propanediol 10 mg tablet (Farxiga) 10 mg PO DAILY Diabetes 03/18/23
glimepiride 4 mg tablet 4 mg PO BID Diabetes 03/18/23
hydrochlorothiazide 25 mg tablet 25 mg PO DAILY Blood Pressure 03/18/23
lisinopril 40 mg tablet 40 mg PO QPM Blood Pressure 03/18/23
famotidine 20 mg tablet 20 mg PO QPM 10/13/23
tirzepatide 5 mg/0.5 mL subcutaneous pen injector (Mounjaro) 5 mg SC PFEIFFER@0800 11/30/23
aspirin 81 mg tablet,delayed release 81 mg PO DAILY 02/28/24
hydrocodone 5 mg-acetaminophen 300 mg tablet 1 tab PO Q4HPRN PRN severe pain 02/28/24
metformin 1,000 mg tablet 1,000 mg PO BID 02/28/24
Review of Systems
-
A 12 point ROS was completed and negative except as noted: Yes
Physical Exam
Vital Signs
Vital Signs
Temp Pulse Resp BP Pulse Ox
97.9 F 91 23 145/84 95
02/28/24 11:42 02/28/24 14:01 02/28/24 11:42 02/28/24 15:00 02/28/24 11:42
Physical Exam
General: Well Developed, Well Nourished, No Apparent Distress and Obese
HEENT: NormoCephalic, Anicteric, Moist mucous membranes and Atraumatic
Respiratory: Clear
Cardiac: S1/S2 and Regular Rhythm
GI: Soft, Non Tender, Non Distended and Normal Bowel Sounds
Musculoskeletal: No Clubbing, No Cyanosis and Other (Right foot with distal dorsal erythema and warmth in the area of the first and second metatarsal. No crepitus or drainage. Full range of motion with no sensory deficit. Weak dorsal pedal pulse.
No skin changes in the calf.)
Skin: Warm
Neuro: Awake, Alert and Oriented
Psych: Calm
Laboratory Results
-
02/28/24 13:38
02/28/24 13:38
Laboratory Results
Lactic Acid 2.0 mmol/L (0.7-2.0) 02/28/24 15:03
Total Bilirubin 0.5 mg/dl (0.2-1.3) 02/28/24 13:38
AST 19 U/L (17-59) 02/28/24 13:38
ALT 18 U/L (0-50) 02/28/24 13:38
Alkaline Phosphatase 133 U/L (38-126) H 02/28/24 13:38
Data Reviewed
-
Ultrasound: Report Reviewed by me
Lab Data: Labs Reviewed by me
Impression/Plan
-
IMPRESSION:
Presentation with right foot pain and erythema
Chronic limb threatening ischemia
Right foot cellulitis likely secondary to above.
Chronic osteomyelitis.
Conditions prior to admission:
PAD
�Unsuccessful arteriogram with attempted revascularization right tibial occlusion on 01/20
Chronic osteomyelitis status post distal right metatarsal amputation.
-Status post left first toe amputation.
CAD with preserved LVEF
Type 2 diabetes.
Essential hypertension
Dyslipidemia
Obesity with BMI of 30.
PLAN:
Patient presents with severe right foot pain which is most likely due to chronic limb threatening ischemia.
Reported dopplerable pedal pulses ABG.
No sensory or motor deficit upon presentation.
Reviewed recent arteriogram with unsuccessful attempt of revascularization of right tibial artery
Patient was planned for Limflow (transcatheter authorization of deep veins) procedure.
Start IV heparin
Continue DAPT
Vascular surgery consultation.
Will keep n.p.o. postmidnight for possible intervention by vascular
Likely chronic osteomyelitis with no evidence of sepsis
Patient has been on oral antibiotics by podiatry week prior to presentation
Initiated on cefepime in ED
Pain control with Tylenol, oxycodone, IV hydromorphone for severe breakthrough pain.
Type 2 diabetes
Outpatient regimen Mounjaro, metformin, glimepiride
Check hemoglobin A1c
Hold oral medications
Basal bolus protocol with serial Accu-Cheks
Essential hypertension
Continue preadmission regimen including Coreg, lisinopril. Hold HCTZ
Full code
DVT prophylaxis/heparin
[2024-02-28 19:20] LABS: Hemoglobin 10.6 g/dL (13.0-18.0); Mean Corp Hgb Conc. 34.2 g/dL (33.0-37.0); Mean Corpuscular Hgb 28.6 pg (27.0-31.0); Mean Corpuscular Volume 83.6 fL (80.0-94.0); Mean Platelet Volume 9.7 fL (7.4-10.4); Platelet Count 345 10^3/uL (130-400); Red Blood Cell Count 3.71 10^6/uL (4.70-6.10); Red Cell Dist. Width 13.5 % (11.5-14.5)
[2024-02-28 19:31] LABS: APTT 33.8 Sec (23.4-35.0)
[2024-02-28 19:34] LABS: Lactic Acid 1.3 mmol/L (0.7-2.0)
[2024-02-28] MEDS: COREG 12.5 MG PO (20:14)
[2024-02-28] MEDS: ZESTRIL 40 MG PO (20:14)
[2024-02-28] MEDS: LIPITOR 80 MG PO (20:15)
[2024-02-28] MEDS: PEPCID 20 MG PO (20:15)
[2024-02-28] MEDS: ASPIR LOW (ENTERIC COATED) PO (20:15)
[2024-02-28] MEDS: DILAUDID 0.5 MG IV (20:16)
[2024-02-28] MEDS: HEPARIN 25000 UNITS/250 ML IV (20:32)
[2024-02-28 21:30] LABS: Glucose - Point of Care 150 mg/dl (70-99)
[2024-02-28] MEDS: PHATP 1 UNIT PO (22:54)
[2024-02-28] MEDS: TYLENOL 1000 MG PO (23:13)
[2024-02-28] MEDS: MAXIPIME 1000 MG IV (23:15)
[2024-02-29] MEDS: STERILE WATER FOR INJECTION 10 ML IV ×3 (00:20→15:42)
[2024-02-29] MEDS: DILAUDID 0.5 MG IV ×2 (02:44→07:57)
[2024-02-29 03:01] LABS: APTT 70.2 Sec (23.4-35.0)
[2024-02-29 06:22] LABS: Glucose - Point of Care 101 mg/dl (70-99)
[2024-02-29 07:00] VITALS: BP 155/76
[2024-02-29] MEDS: PLAVIX 75 MG PO (07:58)
[2024-02-29] MEDS: MAXIPIME 1000 MG IV ×2 (07:58→15:42)
[2024-02-29] MEDS: COREG 12.5 MG PO (07:58)
[2024-02-29] MEDS: TYLENOL 1000 MG PO ×2 (07:59→15:43)
[2024-02-29] MEDS: ASPIR LOW (ENTERIC COATED) 81 MG PO (07:59)
[2024-02-29] MEDS: FARXIGA 10 MG PO (07:59)
[2024-02-29 09:36] LABS: % Basophils 0.6 % (0-2); % Eosinophils 1.2 % (0-6); % Immature Granulocytes 0.2 % (0-0.5); % Lymphocytes 4.6 % (20.5-51.1); % Monocytes 8.6 % (1.7-9.3); % Neutrophils 84.8 % (42.2-75.2); Absolute Basophils 0.1 10^3/uL (0-0.2); Absolute Eosinophils 0.1 10^3/uL (0-0.7); Absolute Lymphocytes 0.4 10^3/uL (1.2-3.4); Absolute Monocytes 0.8 10^3/uL (0.1-0.6); Absolute Neutrophils 7.6 10^3/uL (1.4-6.5); Hematocrit 28.5 % (39.0-52.0); Hemoglobin 9.7 g/dL (13.0-18.0); Mean Corpuscular Hgb 28.4 pg (27.0-31.0); Mean Corpuscular Volume 83.3 fL (80.0-94.0); Nucleated Red Blood Cells % 0 % (-); Platelet Count 303 10^3/uL (130-400); Red Blood Cell Count 3.42 10^6/uL (4.70-6.10); Red Cell Dist. Width 13.5 % (11.5-14.5)
[2024-02-29 09:46] LABS: APTT 80.2 Sec (23.4-35.0)
[2024-02-29 09:55] LABS: Blood Urea Nitrogen 28 mg/dl (9-20); Calcium 9.1 mg/dl (8.4-10.2); Carbon Dioxide 25 mmol/L (22-30); Chloride 103 mmol/L (98-107); Estimated Creatinine Clearance 70 ml/min; Glucose 107 mg/dl (70-99); Potassium 4.5 mmol/L (3.5-5.1); Sodium 136 mmol/L (135-145); eGFR > 60.00
--- NOTE | 2024-02-29 10:36 | W.PN.UPDATE ---
Update Note
Progress Note Update
Patient well-known to me
Critical limb threatening ischemia of the right lower extremity manifested by rest pain and nonhealing right toe wounds and heel wound
He has no traditional open or endovascular arterial revascularization options (severe tibial artery and small vessel disease with no distal targets for endo intervention or bypass) and is currently being evaluated for deep venous
arterialization/LimFlow procedure for limb preservation.
On exam he is in no acute distress. His right foot is warm and does not appear to be acutely threatened.
Plan for oral antibiotic suppression and analgesia
No surgical intervention planned on this admission
He is on dual antiplatelet therapy as an outpatient. Would continue this or transition him to [facility] protocol.
Call with questions or concerns
Case Ryder III, MD
[facility] Vascular Surgery
[phone] (tata)
[2024-02-29] MEDS: HEPARIN 25000 UNITS/250 ML IV (10:40)
--- NOTE | 2024-02-29 11:40 | WOUNDNOTE ---
R 3-4TH TOE WEB
--- NOTE | 2024-02-29 11:41 | WOUNDNOTE ---
R 2ND TOE AMP SITE
--- NOTE | 2024-02-29 11:42 | WOUNDNOTE ---
R 2ND TOE SECOND VIEW
--- NOTE | 2024-02-29 11:45 | WOUNDNOTE ---
MELINDA RN note: Patient admitted with acute osteomyelitis of R foot.
See H&P for complete history.
PMH: R 2nd toe amputation, L 4th toe amputation, cardiac stenting x4, stroke, PAD, CAD,HTN,PR,DVT, NIDDM.
Wound Location and type/assessment: Patient admitted with: R foot swelling and redness. Chronic diabetic/arterial ulcer on R 2nd toe amp site stump, plantar R heel callus and open blister btw 3rd and 4th toe webs. Patient being followed by DrAvinash
Britni and Dr. Mesa. Reviewed vascular note, had unsuccessful arteriogram with attempted revascularization on 01/20. Currently being evaluated for LimFlow procedure. Dr. Saenz confirmed that [facility] on consult. Reviewed current
wound care with patient, has own supplies, using diabetic shoe at bedside.
Appetite: Good.
Pressure redistribution devices in place: On Accumax, can turn self.
Plan: Neosporin and dry coverlet until further orders from Podiatry, dressings changed. Confirmed wound care with Dr. Saenz. Will follow peripherally and assist as needed. Updated nurse Karol and care plan.
Note to case management of equipment requested for discharge: None.
Recommend follow up with vascular and podiatry as scheduled.
[2024-02-29 12:03] LABS: Glucose - Point of Care 111 mg/dl (70-99)
[2024-02-29] MEDS: ROXICODONE 10 MG PO ×2 (12:56→16:57)
[2024-02-29 15:00] VITALS: BP 153/87
--- NOTE | 2024-02-29 15:39 | CM ---
regional production manager reviewed patient's chart and met with patient and patient lives with his spouse in a 2 story home with 4 steps to enter, patient is independent with adl's and ambulation, no dme, patient drives.
Pharmacy: [facility] on [address]
PCP: Dr. Benedict
[2024-02-29 16:09] LABS: APTT 95.1 Sec (23.4-35.0)
--- NOTE | 2024-02-29 16:39 | W.DS.TRANS ---
DC Summary - Director Of Corporate Responsibility
-
Discharge Instructions:
Discharge Diagnosis/Procedures Chronic limb ischemia
Diet Diabetic, Carb Controlled
Instructions:
Stand-Alone Forms:
Changes to Home Medications: Yes
Discharge Medications:
DC Medications w/original date entered in [employer]
atorvastatin 80 mg tablet 80 mg PO QPM High Cholesterol 03/18/23
carvedilol 12.5 mg tablet 12.5 mg PO BID Blood Pressure 03/18/23
clopidogrel 75 mg tablet 75 mg PO DAILY Blood Clot Prevention/Tx 03/18/23
dapagliflozin propanediol 10 mg tablet (Farxiga) 10 mg PO DAILY Diabetes 03/18/23
glimepiride 4 mg tablet 4 mg PO BID Diabetes 03/18/23
hydrochlorothiazide 25 mg tablet 25 mg PO DAILY Blood Pressure 03/18/23
lisinopril 40 mg tablet 40 mg PO QPM Blood Pressure 03/18/23
famotidine 20 mg tablet 20 mg PO QPM Gastrointestinal Issue 10/13/23
tirzepatide 5 mg/0.5 mL subcutaneous pen injector (Mounjaro) 5 mg SC PFEIFFER@0800 Diabetes 11/30/23
aspirin 81 mg tablet,delayed release 81 mg PO DAILY Blood Clot Prevention/Tx 02/28/24
melatonin 1 mg chewable tablet 2 mg PO HS Sleep 02/28/24
metformin 1,000 mg tablet 1,000 mg PO BID Diabetes 02/28/24
oxycodone 10 mg tablet 10 mg PO Q4HPRN PRN moderate to severe pain #30 tabs 02/29/24
Home Medication Changes
Oxycodone for better pain control
Pending Results: No
[2024-02-29] MEDS: ZESTRIL 40 MG PO (16:58)
[2024-02-29] MEDS: LIPITOR 80 MG PO (16:58)
[2024-02-29] MEDS: PEPCID 20 MG PO (16:58)
== END 2024-02-29 17:14 | disposition home or self-care (01) | DRG 300 ==
LOC: 4 WEST ACU 18:18
PROVIDERS: Physician Assistant; ADMITTING PHYSICIAN Internal Medicine; EMERGENCY PHYSICIAN Student in an Organized Health Care Education/Training Program; FAMILY PHYSICIAN Family Medicine
DX: E11.51 Type 2 diabetes mellitus with diabetic peripheral angiopathy without gangrene (principal); L03.115 Cellulitis of right lower limb; M86.671 Other chronic osteomyelitis, right ankle and foot; L97.419 Non-pressure chronic ulcer of right heel and midfoot with unspecified severity; E11.69 Type 2 diabetes mellitus with other specified complication; I70.221 Atherosclerosis of native arteries of extremities with rest pain, right leg; E11.621 Type 2 diabetes mellitus with foot ulcer; I10 Essential (primary) hypertension; E66.9 Obesity, unspecified; Z68.30 Body mass index [BMI] 30.0-30.9, adult; L97.519 Non-pressure chronic ulcer of other part of right foot with unspecified severity; I25.10 Atherosclerotic heart disease of native coronary artery without angina pectoris; E78.00 Pure hypercholesterolemia, unspecified; Z79.02 Long term (current) use of antithrombotics/antiplatelets; Z79.82 Long term (current) use of aspirin; Z79.84 Long term (current) use of oral hypoglycemic drugs; Z79.899 Other long term (current) drug therapy; Z89.422 Acquired absence of other left toe(s); Z89.421 Acquired absence of other right toe(s)
CPT/HCPCS: 73630; 80048; 80053; 82962; 83036; 83605; 85025; 85027; 85652; 85730; 86140; 87040; 93971; 96361; 96374; 99285

== ENCOUNTER → 2025-04-18 14:09 | Outpatient (REF) | payer MEDICARE, OTHER, SELFPAY | LOC: RAD 14:09 | PROVIDERS: ATTENDING PHYSICIAN Nurse Practitioner Family | DX: M25.511 Pain in right shoulder (principal) | CPT/HCPCS: 73030 ==

== ENCOUNTER → 2025-07-31 10:03 | Outpatient (REF) | payer MEDICARE, OTHER, SELFPAY | LOC: RCS 10:03 | PROVIDERS: ATTENDING PHYSICIAN Nurse Practitioner Family | DX: Z01.818 Encounter for other preprocedural examination (principal) | CPT/HCPCS: 93005 ==